=== PATIENT | female | born 1960 | race Native Hawaiian/Other Pacific Islander ===

== ENCOUNTER 2019-07-12 10:46 | Emergency (ER) | payer OTHER ==
[~2019-07-12] VITALS: Ht 160 cm; Wt 97.5 kg
[~2019-07-12 10:46] MED LIST: ESTR1TAB13 PO; HYDR-2748 PO; LEVOTHROID125 MCG PO; LISITAB PO; MECLIZINE25 MG PO; PARO20TA3 PO; PRAVACHOL20 MG PO; TRIM800T12 PO
[2019-07-12 11:01] VITALS: TEMP 99.1
[2019-07-12 12:29] LABS: PLATELET COUNT 192 K/uL (152-353)
[2019-07-12 12:44] LABS: POTASSIUM 3.9 mmol/L (3.6-5.2); SODIUM 145 mmol/L (136-145)
[2019-07-12 14:50] VITALS: BP 155/94
== END 2019-07-12 14:50 | disposition home or self-care (01) ==
LOC: ED 10:46
PROVIDERS: Family Medicine
DX: J45.909 Unspecified asthma, uncomplicated (principal); R05 Cough; R50.9 Fever, unspecified; Z79.899 Other long term (current) drug therapy; Z03.818 Encounter for observation for suspected exposure to other biological agents ruled out
CPT/HCPCS: 36415; 36600; 80053; 81000; 82550; 82805; 83605; 84484; 85027; 87040; 87635; 93005; 96365; 96375; 99284; J0696; J2405; J2930; U0002

== ENCOUNTER 2021-08-27 19:52 | Emergency (ER) | payer OTHER ==
[~2021-08-27] VITALS: Ht 160 cm; Wt 97.5 kg
[2021-08-27 21:02] LABS: PLATELET COUNT 262 K/uL (152-353)
[2021-08-27 21:13] LABS: POTASSIUM 3.3 mmol/L (3.6-5.2)
[2021-08-27 21:23] LABS: PARTIAL THROMBOPLASTIN TIME 24.7 SECONDS (24.5-33.6)
[2021-08-27 22:18] VITALS: BP 141/75; TEMP 98.4
== END 2021-08-27 22:18 | disposition home or self-care (01) ==
LOC: ED 19:52
PROVIDERS: Hospitalist
DX: J06.9 Acute upper respiratory infection, unspecified (principal); E86.0 Dehydration; R11.2 Nausea with vomiting, unspecified; R19.7 Diarrhea, unspecified; U07.1 COVID-19; F17.210 Nicotine dependence, cigarettes, uncomplicated
CPT/HCPCS: 36415; 80053; 80320; 82550; 83880; 84484; 85027; 85610; 85730; 87502; 87635; 87651; 93005; 96360; 96374; 99284; J2405; U0003

== ENCOUNTER 2022-04-30 19:29 | Emergency (ER) | payer OTHER ==
[~2022-04-30] VITALS: Ht 160 cm; Wt 99.8 kg
[2022-04-30 20:41] LABS: PLATELET COUNT 295 K/uL (152-353)
[2022-04-30 21:30] LABS: POTASSIUM 4.4 mmol/L (3.6-5.2)
[2022-04-30 23:00] VITALS: BP 154/87; TEMP 98.9
== END 2022-04-30 23:00 | disposition home or self-care (01) ==
LOC: ED 19:29
PROVIDERS: Emergency Medicine
DX: R53.81 Other malaise (principal); M79.18 Myalgia, other site; R07.89 Other chest pain; R06.02 Shortness of breath; D64.89 Other specified anemias; Z20.822 Contact with and (suspected) exposure to COVID-19
CPT/HCPCS: 36415; 80053; 80307; 81002; 83880; 84484; 85027; 85379; 85610; 85730; 87502; 87635; 93005; 99283; J0696; U0003

== ENCOUNTER 2022-07-25 09:55 | Outpatient (CLI) | payer OTHER | END 2022-07-25 18:56 | disposition home or self-care (01) | LOC: RAD 09:55 | PROVIDERS: ATTEND Nurse Practitioner Acute Care | DX: M25.562 Pain in left knee (principal); M25.552 Pain in left hip; M54.59 Other low back pain; I10 Essential (primary) hypertension ==

== ENCOUNTER 2022-08-02 13:04 | Outpatient (CLI) | payer OTHER | END 2022-08-02 20:35 | disposition home or self-care (01) | LOC: CT 13:04 | PROVIDERS: ATTEND Nurse Practitioner Acute Care | DX: R42 Dizziness and giddiness (principal); Z12.31 Encounter for screening mammogram for malignant neoplasm of breast; Z79.899 Other long term (current) drug therapy ==

== ENCOUNTER 2022-09-15 22:43 | Emergency (ER) | payer OTHER ==
[~2022-09-15] VITALS: Ht 160 cm; Wt 102.1 kg
[2022-09-15 22:52] VITALS: TEMP 97.3
[2022-09-15 23:46] VITALS: BP 148/87
== END 2022-09-15 23:50 | disposition home or self-care (01) ==
LOC: ED 22:43
PROC: 2W2PX4Z Dressing of Left Upper Leg using Bandage (ICD-10-PCS; principal; 2022-09-15)
DX: T24.212A Burn of second degree of left thigh, initial encounter (principal); M54.30 Sciatica, unspecified side; X12.XXXA Contact with other hot fluids, initial encounter
CPT/HCPCS: 99283; J1885; J2360